=== PATIENT | male | born 1990 | race Caucasian/White ===

== ENCOUNTER 2021-08-16 11:07 | Emergency (ER) | payer OTHER, SELFPAY ==
[2021-08-16 11:19] VITALS: BP 136/79; PULSE 101; RESP 16; TEMP 36.4; O2SAT 98
[2021-08-16] MEDS: TETANUS,DIPHTHERIA,AC PERTUSSIS ADULT (0.5 ML) BOOSTRIX IM (11:28)
--- NOTE | 2021-08-16 11:34 | ED.ANIMALBIT ---
HPI - Animal Bite General Chief Complaint: Animal Bite Stated Complaint: dog bite Time Seen by Provider: 08/16/21 11:34 Source: patient Mode of arrival: ambulatory Limitations: no limitations History of Present Illness HPI narrative: 31-year-old male presented for complaint of a dog bite to the left thumb, approximately 30 minutes [employer]. Endorses 2 punctures to the palmar aspect of the thumb and a linear laceration distal to the MCP of the left thumb. Denies numbness, tingling, weakness or decreased range of motion to the thumb. Bleeding is controlled. He rinsed it and applied gauze after it occurred. This is a family dog, up-to-date on shots. He is unsure of his last tetanus vaccine. Related Data Allergies Allergy/AdvReac Type Severity Reaction Status Date / Time mustard AdvReac Severe THROAT Verified 08/16/21 11:09 SWELLING coconut AdvReac Intermediate VOMITING Verified 08/16/21 11:09 Review of Systems Review of Systems: CONSTITUTIONAL: Denies body aches, fever, chills, or sweats. EYES: Denies visual changes, redness, or discharge. ENT: Denies rhinorrhea, congestion, sore throat, or otalgia. CARDIOVASCULAR: Denies chest pain, palpitations, or edema. RESPIRATORY: Denies cough or dyspnea. SKIN: left thumb wound MUSCULOSKELETAL: Denies back pain, joint pain, or myalgia. NEUROLOGIC: Denies headache, numbness, tingling, or weakness. [facility] Family History Family History Mother Family history of rheumatoid arthritis Other Family history of allergic disorder Family history of cardiovascular disease Family history of malignant melanoma Hypertension Social History Social History Smoking status: Never smoker Alcohol intake: never Comments At time of signature, I have reviewed and agree with nursing past medical, surgical, social and family history unless otherwise noted. Please see nursing chart for further information. There is no relevant family history pertinent to the presenting complaint Exam Narrative: GENERAL: no acute distress. ENT: Mucous membranes moist. Oropharynx without edema, erythema or lesions. CHEST: Clear to auscultation. No respiratory distress. HEART: Regular rate and rhythm. SKIN: Warm, dry. Left thumb dorsal aspect with 1.5 cm linear laceration and dorsal aspect with 2 puncture wounds, bleeding controlled NEURO: Alert and oriented x3. PSYCH:flat affect Course Course Emergency Course: Patient is aware of diagnosis, understands and agrees to treatment plan. Anticipatory guidance given. Patient agrees to follow-up as directed and is aware of reasons to seek care at the emergency department. Portions of this record may have been created with voice recognition software Level of Care: Express Care Visit Vital Signs Vital signs: Vital Signs Temperature 97.6 F 08/16/21 11:19 Pulse Rate 101 H 08/16/21 11:19 Respiratory Rate 16 08/16/21 11:19 Blood Pressure 136/79 08/16/21 11:19 Pulse Oximetry 98 08/16/21 11:19 Oxygen Delivery Room Air 08/16/21 11:19 Temperature 97.6 F 08/16/21 11:19 Pulse Rate 101 H 08/16/21 11:19 Respiratory Rate 16 08/16/21 11:19 Blood Pressure 136/79 08/16/21 11:19 Pulse Oximetry 98 08/16/21 11:19 Oxygen Delivery Room Air 08/16/21 11:19 Reviewed Procedures Other Procedure Procedure 1: Other Procedure: left thumb dog bite extensively irrigated, JOY and nonadhesive applied with gauze. Tolerated well. MDM - Animal Bite MDM Narrative Medical decision making narrative: Wound cleansed, dressing applied. Advised supportive measures and signs/symptoms to go to the ER. Pt is appropriate for outpt treatment and f/u. Differential Diagnosis Differential diagnosis: Likely bite by animal, dog bite and rabies contact Discharge Plan Discharge Clinical Impression: Dog bite Qualifiers: Encounter
== END 2021-08-16 11:55 | disposition home or self-care (01) ==
PROVIDERS: Emergency Provider Nurse Practitioner Family
DX: S61.012A Laceration without foreign body of left thumb without damage to nail, initial encounter (principal); S61.032A Puncture wound without foreign body of left thumb without damage to nail, initial encounter; W54.0XXA Bitten by dog, initial encounter; Z23 Encounter for immunization
CPT/HCPCS: 90471; 90715; 99213; G0463

== ENCOUNTER 2022-07-28 11:21 | Emergency (ER) | payer OTHER, SELFPAY ==
--- NOTE | ~2022-07-28 | XR_ITS ---
Left ankle Technique: AP, oblique, and lateral views were obtained. Clinical History: Pain Findings: No acute fracture or dislocation is seen. Osseous alignment is anatomic. Ankle mortise and other visualized joint spaces are preserved. Soft tissues are otherwise unremarkable. Impression: Unremarkable left ankle. Reviewed, dictated and finalized at location . Impression: Unremarkable left ankle.
[2022-07-28 11:47] VITALS: BP 133/69; PULSE 65; RESP 16; TEMP 36.5; O2SAT 100
--- NOTE | 2022-07-28 11:51 | ED.LOWEXIN ---
HPI - Extremity Injury (Lower) General Chief Complaint: Extremity Injury, Lower Stated Complaint: Left Ankle Pain Time Seen by Provider: 07/28/22 11:51 Source: patient Mode of arrival: ambulatory Limitations: no limitations History of Present Illness HPI Narrative: Patient is a 32-year-old male that presents with left ankle pain after rolling it camping. Patient has been elevating and icing it. Patient has previously fractured that ankle when he was 15. Patient denies any tenderness to touch but does report pain when rotating ankle in and when walking. States it is just a dull ache at rest. Denies any numbness or tingling to toes. Related Data Home Medications Medication Instructions Recorded Confirmed fexofenadine 180 mg tablet 180 mg PO DAILY 07/28/22 07/28/22 Allergies Allergy/AdvReac Type Severity Reaction Status Date / Time mustard AdvReac Severe THROAT Verified 08/16/21 11:09 SWELLING coconut AdvReac Intermediate VOMITING Verified 08/16/21 11:09 Review of Systems Review of Systems: All systems reviewed & are unremarkable except as noted in HPI and below Constitutional: Constitutional: Denies body ache(s), Denies chills, Denies fatigue, Denies fever(s), Denies headache(s), Denies malaise and Denies weakness Eyes: Eyes: Denies blurry vision, Denies irritation and Denies loss of vision ENT: Denies otalgia, Denies headache(s), Denies nasal discharge, Denies sinus pain and Denies sore throat Cardiovascular: Cardiovascular: Denies chest pain, Denies irregular heart rhythm and Denies dyspnea Respiratory: Respiratory: Denies dyspnea Gastrointestinal: Gastrointestinal: Denies abdominal pain, Denies melena, Denies hematochezia, Denies diarrhea, Denies nausea and Denies vomiting Musculoskeletal: Musculoskeletal: Denies back pain, Denies myalgias, Reports arthralgias and Reports joint swelling Integumentary/Breasts: Skin/Breast: Denies pruritus and Denies rash Neurologic: Denies headache(s), Denies loss of vision and Denies weakness Psychiatric: Psychiatric: Reports no additional psychiatric complaints Endocrine: Endocrine: Denies fatigue PMFSH Family History Family History Mother Family history of rheumatoid arthritis Other Family history of allergic disorder Family history of cardiovascular disease Family history of malignant melanoma Hypertension Social History Social History Smoking status: Never smoker Alcohol intake: never Comments At time of signature, agree with nursing past medical, surgical, social and family history. There is no relevant family history pertinent to the presenting complaint. Exam Const: General: cooperative, healthy appearing, comfortable, no acute distress and well nourished Nutritional Appearance: well nourished Orientation/consciousness: patient oriented x3 Limitations: no limitations HENMT: Head: normal to inspection, normocephalic and atraumatic Ears: hearing grossly normal bilaterally and external ears normal Face/Nose/Sinus: Normal external nose present, normal facial exam and face symmetric Face and sinus: normal facial exam and face symmetric Mouth: Yes lip normal Eyes: General: appearance normal, both eyes and all related structures Alignment and Position: alignment normal and position normal Periorbital: periorbital findings normal Eyelids: eyelids normal Pupils: Equal, round and reactive pupils present EOM: EOMs intact bilaterally Neck: Neck: normal visual inspection, full ROM and supple Chest: Chest palpation & inspection: normal inspection of the chest Resp: Effort & Inspection: normal respiratory effort and able to speak in complete sentences Auscultation: clear to auscultation bilaterally Cardio: Rate: regular rate Rhythm: regular rhythm Heart sounds: S1 normal heart sound present and S2 normal heart sound present GI:
== END 2022-07-28 12:35 | disposition home or self-care (01) ==
PROVIDERS: Emergency Provider Nurse Practitioner Family
DX: S93.402A Sprain of unspecified ligament of left ankle, initial encounter (principal); S96.912A Strain of unspecified muscle and tendon at ankle and foot level, left foot, initial encounter; X50.9XXA Other and unspecified overexertion or strenuous movements or postures, initial encounter
CPT/HCPCS: 73610; 99213; G0463

== ENCOUNTER 2024-01-02 09:12 | Emergency (ER) | payer OTHER, SELFPAY ==
--- NOTE | ~2024-01-02 | XR_ITS ---
Clinical Indication: Cough PA and lateral views of the chest: Comparison: None Findings: The lungs are clear, without evidence of focal consolidation or pleural effusion. Cardiome diastinal silhouette is within normal limits. Bones and soft tissues are unremarkable. Impression: Normal chest. Reviewed, dictated and finalized at location . [employer]ALL INSPECTOR Impression: Normal chest.
[2024-01-02 09:20] VITALS: BP 156/104; PULSE 114; RESP 20; TEMP 37.4; O2SAT 99
--- NOTE | 2024-01-02 09:36 | ED_ITS ---
HPI - URI/Sore Throat General Chief Complaint: Upper Respiratory Infection Stated Complaint: Sinus Time Seen by Provider: 01/02/24 09:25 Source: patient Mode of arrival: ambulatory Limitations: no limitations History of Present Illness HPI Narrative: Dakota is a 33-year-old male patient presenting to the clinic today with complaints of sinus congestion, low-grade fever cough, headache, sore throat, shortness of breath, and exposure to pneumonia. He reports that two people in the home have walking pneumonia. States his symptoms started yesterday. Denies any chest pain. MD elicited complaint: fever, cough, sore throat, rhinorrhea, nasal congestion and other (Shortness of breath) Related Data Home Medications Medication Instructions Recorded Confirmed No Home Medications 01/02/24 01/02/24 Allergies Allergy/AdvReac Type Severity Reaction Status Date / Time mustard AdvReac Severe THROAT Verified 01/02/24 09:26 SWELLING coconut AdvReac Intermediate VOMITING Verified 01/02/24 09:26 Review of Systems Review of Systems: Pertinent positives per HPI. Patient denies any rash, visual changes, dizziness, shortness of breath, chest pain, palpitations, nausea, vomiting, diarrhea, constipation, abdominal pain, or any urinary issues. [facility] Family History Family History Mother Family history of rheumatoid arthritis Other Family history of allergic disorder Family history of cardiovascular disease Family history of malignant melanoma Hypertension Social History Social History Smoking status: Never smoker Alcohol intake: never Comments At the time of my signature, I reviewed and agree with the nursing past medical, surgical, social, and family history. There is no relevant family history pertinent to the patient complaint. Exam Narrative: General: Well-developed, well nourished, in no apparent distress Head: Normocephalic, atraumatic Eyes: Pupils equally round and reactive to light bilaterally, EOM intact, sclera and conjunctive clear, no discharge, lids normal Ears: TMs intact and clear, ear canals clear, no drainage, grossly hearing nor mal. Nose: Nares patent, clear nasal discharge, no inflammation, no sinus tenderness. Mouth: Oral pharynx red without lesions or masses, good dentition, MMM. Neck: Supple, trachea midline, no enlargement of anterior or posterior cervical nodes, no thyroid masses or goiter palpable. Cardio: Regular rate and rhythm, s1 and s2 normal, no murmur appreciated. Resp: Clear to auscultation bilaterally, no rhonchi, rales, wheezing or rubs Course Course Emergency Course: Portions of this record may have been created with voice recognition software. Level of Care: Express Care Visit Vital Signs Vital signs: Vital Signs Temperature 37.4 C 01/02/24 09:20 Pulse Rate 114 H 01/02/24 09:20 Respiratory Rate 20 01/02/24 09:20 Blood Pressure 156/104 H 01/02/24 09:20 Pulse Oximetry 99 01/02/24 09:20 Oxygen Delivery Room Air 01/02/24 09:20 Temperature 37.4 C 01/02/24 09:20 Pulse Rate 114 H 01/02/24 09:20 Respiratory Rate 20 01/02/24 09:20 Blood Pressure 156/104 H 01/02/24 09:20 Pulse Oximetry 99 01/02/24 09:20 Oxygen Delivery Room Air 01/02/24 09:20 Vital signs reviewed MDM - URI/Sore Throat MDM Narrative Medical decision making narrative: At the time of visit patient is resting comfortably on the exam table. Patient appears to be nontoxic. Labs: COVID testing was positive in the clinic today. Influenza and strep test were negative. We will send strep for culture. Diagnostics: Chest x-rays negative for any sign of pneumonia. Plan: Patient has COVID. Supportive measures were discussed with the patient and they voiced understanding discharge instructions and agrees to treatment plan. Return precautions reviewed Differential Diagnosis Differential diagnosis: Likely upper respiratory infection, otitis media, sinusitis, viral infection, bronchitis, influenza, pharyngitis and other (COVID, pneumonia) Lab Data Labs: Lab Results 01/02/24 Range/Units 09:51 POC SARS CoV-2 Ag Positive (Negative) Imaging Data Radiologist's impression: ITS Impressions Chest X-Ray 01/02/24 09:48 Impression: Normal chest. Discharge Plan Discharge Clinical Impression: COVID-19 Patient Disposition: Home, Self-Care Condition: Stable Instructions: Antibiotic Form, How to Recover from COVID-19 at Home (ED) Additional Instructions: COVID test was positive in the clinic today. Influenza and strep test were negative. We will send strep for culture if this comes back positive we will contact him place you on antibiotics at that time. Chest x-rays negative for any sign of pneumonia. May continue taking DayQuil/NyQuil for cold/flu symptoms Increase fluids and stay well hydrated Tylenol/motrin for pain/fever Flonase and OTC antihistamines as directed Vicks vapor rub to open sinuses Sinus rinses for congestion Cepacol spray, cough drops, throat lozenges, warm tea with honey/lemon, gargle salt water to soothe throat BRAT diet for diarrhea Clear liquids x 24 hours then advance as tolerated for nausea/vomiting Go to the ED if you develop a worsening in your condition- high fever not controlled by Tylenol or Motrin, dehydration, weakness, lethargy, shortness of breath, or chest pain. Follow up with your PCP in 3-5 days if symptoms persist. You have an elevated blood pressure in the clinic today and I recommend follow- up with primary care physician to have this reevaluated within the next week if symptoms persist. [place] [employer] guidelines state that normal blood pressure is 120/80 or less. Anything over 120/80 is considered elevated and should be monitored. You may need to decrease you salt intake and eat a heart healthy diet to help lower you blood pressure, other treatments would include decreasing stress, weight loss, stop caffeine, and quit smoking. Your primary care provider can determine whether you need to start antihypertensive medications. Untreated high blood pressure can cause dizziness, headaches, visual changes, blindness, kidney failure, stroke, heart attack, and male impotence. Prescriptions: No Action No Home Medications Follow-up/Referrals: [facility] [Primary Care Provider] - Stand Alone Forms: Work/School Release IP Time of Disposition: 09:48 Quality NIHSS Nursing Documentation ED NIHSS nursing documentation: reviewed/agree
[2024-01-02 09:53] LABS: EDCOVIDSCREEN Positive (Negative)
[2024-01-02 09:57] LABS: EDINFLUASCREEN Negative (Negative); EDINFLUBSCREEN Negative (Negative); EDSTREPNEGPOS1 Negative (Negative)
== END 2024-01-02 10:00 | disposition home or self-care (01) ==
PROVIDERS: Emergency Provider Nurse Practitioner Family
DX: U07.1 COVID-19 (principal)
CPT/HCPCS: 71046; 87081; 87426; 87804; 87880; 99213; G0463